=== PATIENT | female | born 1990 | race Caucasian/White ===

== ENCOUNTER 2018-02-17 21:40 | Emergency (ER) | payer SELFPAY ==
[2018-02-17] MEDS ORDERED: ALPRAZolam TAB* 0.5 MG PO ONE (22:03)
--- NOTE | 2018-02-17 22:08 | ED ---
HPI Chest Pain - HPI Summary HPI Summary: Patient is a 27 y/o F w/ c/o left upper chest pain and LUE pain for the past 1.5 hours. SOB is denied. 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 Patient is on control. PMHx of anxiety, patient states she used to be on buspar but stopped taking it a few months ago as she "did not need it". On triage, pain is rated 5/10, movement is noted to aggravate Sx, nothing is reported to alleviate Sx. Home medications and allergies are reviewed. - History of Current Complaint Chief Complaint: EDChestPainROMI Time Seen by Provider: 02/17/18 22:00 Hx Obtained From: Patient Onset/Duration: Started Hours Ago - 1.5 hours, Still Present Timing: Constant, Lasting Hours - 1.5 hours Current Severity: Moderate - 5/10 Pain Intensity: 5 Pain Scale Used: 0-10 Numeric - 5/10 Chest Pain Location: Left Anterior Chest Pain Radiates: No Aggravating Factor(s): Movement Alleviating Factor(s): Nothing Associated Signs and Symptoms: Positive: Chest Pain, Other: - LUE pain. Negative: Shortness of Breath - Allergy/Home Medications Allergies/Adverse Reactions: Allergies Allergy/AdvReac Type Severity Reaction Status Date / Time prednisone AdvReac See Comment Verified 02/17/18 22:01 PMH/Surg Hx/FS Hx/Imm Hx Sensory History: Denies: Hx Legally Blind, Hx Deafness Opthamlomology History: Denies: Hx Legally Blind EENT History: Denies: Hx Deafness Psychiatric History: Reports: Hx Anxiety Infectious Disease History: No Infectious Disease History: Denies: Traveled Outside the [place] in Last 30 Days - Family History Known Family History: Negative: Blood Disorder - Social History Alcohol Use: Occasionally Substance Use Type: Reports: None Smoking Status (MU): Never Smoked Tobacco Review of Systems Positive: Chest Pain Negative: Shortness Of Breath Positive: Other - LUE pain All Other Systems Reviewed And Are Negative: Yes Physical Exam - Summary Physical Exam Summary: VITAL SIGNS: Reviewed. GENERAL: Patient is a well-developed and nourished female who is lying comfortable in the stretcher. Patient is not in any acute respiratory distress. HEAD AND FACE: No signs of trauma. No ecchymosis, hematomas or skull depressions. No sinus tenderness. EYES: PERRLA, EOMI x 2, No injected conjunctiva, no nystagmus. EARS: Hearing grossly intact. Ear canals and tympanic membranes are within normal limits. MOUTH: Oropharynx within normal limits. NECK: Supple, trachea is midline, no adenopathy, no JVD, no carotid bruit, no c- spine tenderness, neck with full ROM. CHEST: Symmetric, no tenderness at palpation LUNGS: Clear to auscultation bilaterally. No wheezing or crackles. CVS: Regular rate and rhythm, S1 and S2 present, no murmurs or gallops appreciated. ABDOMEN: Soft, non-tender. No signs of distention. No rebound no guarding, and no masses palpated. Bowel sounds are normal. EXTREMITIES: FROM in all major joints, no edema, no cyanosis or clubbing. NEURO: Alert and oriented x 3. No acute neurological deficits. Speech is normal and follows commands. SKIN: Dry and warm Triage Information Reviewed: Yes Vital Signs On Initial Exam: Initial Vitals Temp Pulse Resp BP Pulse Ox 99.8 F 105 18 152/97 98 02/17/18 21:42 02/17/18 21:42 02/17/18 21:42 02/17/18 21:42 02/17/18 21:42 Vital Signs Reviewed: Yes Diagnostics - Vital Signs Vital Signs Temp Pulse Resp BP Pulse Ox 02/17/18 21:42 99.8 F 105 18 152/97 98 - Laboratory Result Diagrams: 02/17/18 22:36 02/17/18 22:36 Lab Statement: Any lab studies that have been ordered have been reviewed, and results considered in the medical decision making process. - EKG 2219 Cardiac Rate: NL - rate of 94 BPM EKG Rhythm: Sinus Rhythm Summary of EKG Findings: Normal axis. Normal interval. No ischemic changes Re-Evaluation - Re-Evaluation First Eval Re-Evaluation Time: 23:36 Comment: [id number] Patient reports that she feels better after Xanax. Patient will be discharged to home and is instructed to follow up with PCP in 1-2 days. She is agreeable with this plan. Chest Pain Course/Dx - Course Course Of Treatment: Patient is a 27 y/o F w/ c/o left upper chest pain and LUE pain for the past 1.5 hours. SOB is denied. 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 Patient is on control. PMHx of anxiety, patient states she used to be on buspar but stopped taking it a few months ago as she "did not need it". Physical exam was unremarkable. During ED course, patient received Xanax 0.5 mg PO ONCE. Labs showed trop 0, glucose 108, alk phos 30, magnesium 2.2. EKG showed normal sinus rhythm with rate of 94 BPM, normal axis, normal intervals, no ischemic changes. [id number] Patient reports that she feels better after Xanax. Patient will be discharged to home and is instructed to follow up with PCP in 1-2 days. She is agreeable with this plan. Dx of atypical chest pain , anxiety. - Diagnoses Provider Diagnoses: Anxiety, Atypical chest pain Discharge - Sign-Out/Discharge Documenting (check all that apply): Patient Departure - discharge - Discharge Plan Condition: Stable Disposition: HOME Patient Education Materials: Chest Pain (ED), Anxiety (ED) Referrals: [facility] [place] [Outside] - 2 Days Additional Instructions: RETURN TO THE EMERGENCY DEPARTMENT FOR CHANGING OR WORSENING SYMPTOMS. FOLLOW UP WITH PRIMARY CARE PHYSICIAN IN 1-2 DAYS. - Attestation Statements Document Initiated by Scribe: Yes Documenting Scribe: Guru Chaudhari Provider For Whom Maria Del Carmen is Documenting (Include Credential): Jason Reilly MD Scribe Attestation: Guru Charles , scribed for Jason Reilly MD on 02/18/18 at 0000.
[2018-02-17 22:47] LABS: ABS Basophils 0 10^3/ul (0-0.2); ABS Eosinophils 0.1 10^3/ul (0-0.6); ABS Lymphocytes 2.5 10^3/ul (1.0-4.8); ABS Monocytes 0.8 10^3/ul (0-0.8); ABS Neutrophils 3.1 10^3/ul (1.5-7.7); ABS Nucleated RBC 0 10^3/ul; Eosinophil % 1.5 % (0-6); Hematocrit 42 % (35-47); Hemoglobin 14.3 g/dl (12.0-16.0); Lymphocyte % 38.3 % (25-47); Mean Corpuscular HGB Conc 34 g/dl (31-36); Mean Corpuscular Hemoglobin 29 pg (27-31); Mean Corpuscular Volume 85 fL (80-97); Nucleated Red Blood Cells % 0.1; Platelet Count 307 10^3/ul (150-450); Red Blood Count 4.91 10^6/ul (4.00-5.40); Red Cell Distribution Width 13 % (10.5-15); White Blood Count 6.4 10^3/ul (3.5-10.8)
[2018-02-17 23:05] LABS: EGFR Non-African American 83.6 (>60)
[2018-02-17 23:54] VITALS: BP 128/78
== END 2018-02-17 23:54 | disposition home or self-care (01) ==
LOC: ED 21:40
DX: R07.89 Other chest pain (principal); F41.9 Anxiety disorder, unspecified
CPT/HCPCS: 36415; 80053; 82550; 83735; 84484; 85025; 93005; 99283; A9270-GY

== ENCOUNTER 2018-03-03 11:06 | Emergency (ER) | payer SELFPAY ==
[2018-03-03 14:01] VITALS: BP 146/94
--- NOTE | 2018-03-04 07:27 | UC ---
- Progress Note Progress Note: NO IMAGING Discharge - Sign-Out/Discharge Documenting (check all that apply): Post-Discharge Follow Up All imaging exams completed and their final reports reviewed: No Studies - Discharge Plan Condition: Improved Disposition: HOME Prescriptions: Fluticasone NASAL SPRAY 50MCG* [Flonase NASAL SPRAY 50MCG*] 2 spray BOTH NARES DAILY 7 Days #1 btl Guaifenesin/Pseudo 600/60(NF) [Mucinex D 600/60 (NF)] 1 tab PO BID #14 tab Patient Education Materials: Upper Respiratory Infection (ED) Forms: *Work Release Referrals: [facility] [place] [facility] [Outside] Daphne Delgadillo DO [Primary Care Provider] - Additional Instructions: Humidifier while sleeping. Avoid smokers. Return with fever, increased pain in the sinus area, worse, new symptoms or other concerns. Tylenol, ibuprofen as needed for discomfort. Call the physician referral line to set up an appointment with primary care physician. - Billing Disposition and Condition Condition: IMPROVED Disposition: Home
--- NOTE | 2018-03-13 13:47 | UC ---
Throat Pain/Nasal Jose HPI - HPI Summary HPI Summary: Patient presents with 4 day history of cough, congestion, sore throat and left ear discomfort. She denies any fevers, nausea vomiting or diarrhea. - History of Current Complaint Chief Complaint: UCEar Stated Complaint: L EAR PAIN, HEADACHE Time Seen by Provider: 03/03/18 11:11 Hx Obtained From: Patient Hx Last Menstrual Period: 02/23/18 Pain Intensity: 5 Pain Scale Used: 0-10 Numeric - Allergies/Home Medications Allergies/Adverse Reactions: Allergies Allergy/AdvReac Type Severity Reaction Status Date / Time prednisone AdvReac See Comment Verified 03/03/18 11:20 Home Medications: Home Medications Norgestrel-Ethinyl Estradiol [Cryselle-28 Tablet] 1 tab PO DAILY 03/03/18 [ History Confirmed 03/03/18] PMH/Surg Hx/FS Hx/Imm Hx Previously Healthy: Yes - Surgical History Surgical History: None - Family History Known Family History: Negative: Blood Disorder - Social History Alcohol Use: Occasionally Substance Use Type: None Smoking Status (MU): Never Smoked Tobacco Review of Systems All Other Systems Reviewed And Are Negative: Yes Constitutional: Positive: Fever Eyes: Positive: Negative ENT: Positive: Sore Throat, Ear Ache, Nasal Discharge, Sinus Congestion Respiratory: Positive: Negative Cardiovascular: Positive: Negative Gastrointestinal: Positive: Negative Physical Exam Appearance: Well-Appearing, No Pain Distress, Well-Nourished Vital Signs: Initial Vital Signs Temp 98.8 F 03/03/18 11:16 Pulse 96 03/03/18 11:16 Resp 18 03/03/18 11:16 BP 146/94 03/03/18 11:16 Pulse Ox 100 03/03/18 11:16 Eyes: Positive: Conjunctiva Clear ENT: Positive: Pharynx normal, Pharyngeal erythema, Nasal congestion, Nasal drainage, Other - Serous effusion left ear. Negative: Sinus tenderness Neck exam: Normal Neck: Positive: No Lymphadenopathy Respiratory: Positive: Lungs clear Cardiovascular: Positive: RRR Musculoskeletal: Positive: Strength Intact, ROM Intact Skin Exam: Normal Throat Pain/Nasal Course/Dx - Course Course Of Treatment: Minor URI symptoms with serous effusion in the sore left ear. Treat symptomatically. - Differential Dx/Diagnosis Provider Diagnosis: Upper respiratory infection Discharge - Sign-Out/Discharge Documenting (check all that apply): Patient Departure All imaging exams completed and their final reports reviewed: No Studies - Discharge Plan Condition: Improved Disposition: HOME Prescriptions: Fluticasone NASAL SPRAY 50MCG* [Flonase NASAL SPRAY 50MCG*] 2 spray BOTH NARES DAILY 7 Days #1 btl Guaifenesin/Pseudo 600/60(NF) [Mucinex D 600/60 (NF)] 1 tab PO BID #14 tab Patient Education Materials: Upper Respiratory Infection (ED) Forms: *Work Release Referrals: [facility] [place] [place]Outside] Daphne Delgadillo DO [Primary Care Provider] - Additional Instructions: Humidifier while sleeping. Avoid smokers. Return with fever, increased pain in the sinus area, worse, new symptoms or other concerns. Tylenol, ibuprofen as needed for discomfort. Call the physician referral line to set up an appointment with primary care physician. - Billing Disposition and Condition Condition: IMPROVED Disposition: Home - Attestation Statements Document Initiated by Scribe: No
== END 2018-03-03 11:51 | disposition home or self-care (01) ==
LOC: UCEAST 11:06
DX: J06.9 Acute upper respiratory infection, unspecified (principal); Z88.8 Allergy status to other drugs, medicaments and biological substances
CPT/HCPCS: 99212; G0463